=== PATIENT | female | born 1955 | race Caucasian/White ===

== ENCOUNTER → 2017-04-13 | Outpatient (CLI) | payer BC ==
--- NOTE | 2017-04-14 13:21 | MAMMOGRAPHY REPORT ---
BILATERAL DIGITAL SCREENING MAMMOGRAM TOMOSYNTHESIS WITH CAD: 04/13/2017 CLINICAL HISTORY: Asymptomatic. Personal history of breast cancer. TECHNIQUE: Breast tomosynthesis in addition to standard 2D mammography was performed. Current study was also evaluated with a Computer Aided Detection (CAD) system. COMPARISON: Comparison is made to exams dated: 04/12/2016 mammogram, 03/17/2015 mammogram, 03/13/2014 mamm ogram, 10/15/2012 mammogram, 11/19/2010 mammogram, and 10/08/2009 mammogram - [facility] BREAST COMPOSITION: The tissue of both breasts is heterogeneously dense, which may obscure small mas ses. FINDINGS: No suspicious masses, calcifications, or areas of architectural distortion are noted in ei ther breast. There has been no significant interval change compared to prior exams. There are stable postsurgical changes in the left breast from prior lumpectomy. IMPRESSION: ACR BI-RADS CATEGORY 2: BENIGN There is no mammographic evidence of malignancy. A 1 year screening mammogram is recommended. The pa tient will receive written notification of the results. Approximately 10% of breast cancers are not detected with mammography. A negative mammographic report should not delay biopsy if a clinically suggestive mass is present. Gill Yuen M.D. ah/:04/13/2017 15:43:16 Hairspring Cutter: Anita Plunkett M, [facility] letter sent: Normal 1/2 BI-RADS Code: ACR BI-RADS Category 2: Benign
== END | disposition home or self-care (01) ==
LOC: C.MAMM 09:49
PROVIDERS: ATTEND Family Medicine
DX: Z12.31 Encounter for screening mammogram for malignant neoplasm of breast (principal)

== ENCOUNTER → 2017-10-04 | Outpatient (CLI) | payer OTHER ==
[2017-10-04 16:52] LABS: BASO % 0.4 %; BASO ABS # 0.02 K/uL (0-0.2); EOS % 1.5 %; EOS ABS # 0.07 K/uL (0-0.5); HEMATOCRIT 37.6 % (37-47); HEMOGLOBIN 12.5 g/dL (12.0-16.0); LYMPH % 23.6 %; LYMPH ABS # 1.08 K/uL (1.2-3.4); MEAN CELL VOLUME 90.4 fL (80-100); MEAN CORPUSCULAR HGB CONC 33.2 g/dl (32-36); MEAN PLATELET VOLUME 9.9 fL (7.4-10.4); MONO % 8.1 %; MONO ABS # 0.37 K/uL (0.11-0.59); NEUT % 66.4 %; NEUT ABS # 3.04 K/uL (1.4-6.5); PLATELET COUNT 267 K/uL (130-400); RED CELL DISTRIBUTION WIDTH CV 13.9 % (11.5-14.5); RED CELL DISTRIBUTION WIDTH SD 45.9 fL (36.4-46.3); WHITE BLOOD COUNT 4.58 K/uL (4.8-10.8)
[2017-10-04 17:04] LABS: ALBUMIN 3.6 gm/dl (3.4-5.0); ALT/SGPT 29 U/L (12-78); BLOOD UREA NITROGEN 24 mg/dl (7-18); CALCIUM 9.2 mg/dl (8.5-10.1); CARBON DIOXIDE 28 mmol/L (21-32); GLUCOSE 95 mg/dl (70-99); POTASSIUM 4.5 mmol/L (3.5-5.1); SODIUM 138 mmol/L (136-145)
[2017-10-04 17:15] LABS: ALKALINE PHOSPHATASE 91 U/L (45-117); AST/SGOT 18 U/L (15-37); TOTAL PROTEIN 7.5 gm/dl (6.4-8.2)
== END | disposition home or self-care (01) ==
LOC: C.LABBC 12:59
PROVIDERS: ATTEND Family Medicine
DX: R53.83 Other fatigue (principal); R06.02 Shortness of breath

== ENCOUNTER → 2017-10-10 | Outpatient (CLI) | payer OTHER ==
--- NOTE | 2017-10-10 13:12 | EXERCISE STRESS TEST ---
PROCEDURE: A treadmill exercise stress test was performed using the Ryan protocol. Imaging was not performed. The patient exercised well, she achieved a peak heart rate of 155 beats per minute (which is nearly 100% of her predicted maximal heart rate), and she exercised for 9 minutes before the treadmill was stopped due to achieving a high heart rate. She did not have symptoms of chest discomfort, she did have some shortness of breath at higher exercise levels. Her blood pressure increased appropriately during the test. There were no ST-T abnormalities identified during the test. There were no arrhythmias identified. CONCLUSION: Normal treadmill stress test with a good exercise tolerance and high heart rate achieved.
== END | disposition home or self-care (01) ==
LOC: C.CPL 08:46
PROVIDERS: ATTEND Family Medicine
DX: R53.83 Other fatigue (principal); R06.02 Shortness of breath

== ENCOUNTER → 2017-12-26 | Outpatient (CLI) | payer OTHER ==
[2017-12-26 11:45] LABS: PLATELET COUNT 223 K/uL (130-400)
[2017-12-26 12:29] LABS: URIC ACID 2.5 mg/dl (2.6-7.2)
[2017-12-30 05:35] LABS: ANA SCREEN TC 249X NEGATIVE (NEGATIVE)
== END | disposition home or self-care (01) ==
LOC: C.LAB 11:00
PROVIDERS: ATTEND Orthopaedic Surgery
DX: I82.90 Acute embolism and thrombosis of unspecified vein (principal)

== ENCOUNTER → 2018-04-17 | Outpatient (CLI) | payer OTHER ==
--- NOTE | 2018-04-18 13:38 | MAMMOGRAPHY REPORT ---
BILATERAL DIGITAL SCREENING MAMMOGRAM TOMOSYNTHESIS WITH CAD: 04/17/2018 CLINICAL HISTORY: Routine screening. Patient has no complaints. TECHNIQUE: The study was acquired using full field digital technology and interpreted from soft copy. Breast tomosynthesis in addition to standard 2D mammography was performed. Current study was also ev aluated with a Computer Aided Detection (CAD) system. COMPARISON: Comparison is made to exams dated: 04/13/2017 mammogram, 04/12/2016 mammogram, 03/17/2015 mamm ogram, 03/13/2014 mammogram, 10/15/2012 mammogram, and 11/19/2010 mammogram - [facility] . BREAST COMPOSITION: The tissue of both breasts is heterogeneously dense, which may obscure small mass es. FINDINGS: A linear scar marker overlies the left upper outer quadrant. There is expected architectur al distortion and surgical clips in the upper outer posterior left breast and left axillary region, d enoting areas of prior surgery. Stable nodular asymmetry in the medial left breast on the CC view. N o suspicious mass, architectural distortion or cluster of microcalcifications is seen. IMPRESSION: ACR BI-RADS CATEGORY 1: NEGATIVE There is no mammographic evidence of malignancy. A 1 year screening mammogram is recommended.( [id number]) The patient will receive written notification of the results. Some breast cancers are not detected with mammography. A negative mammographic report should not julian y biopsy if a clinically suggestive mass is present. Virginie Maher M.D. ay/:04/17/2018 16:45:40 Brush Clearing Laborer: RT Christina(R)(M), [facility] letter sent: Normal 1/2 BI-RADS Code: ACR BI-RADS Category 1: Negative
== END | disposition home or self-care (01) ==
LOC: C.MAMM 09:37
PROVIDERS: ATTEND Family Medicine
DX: Z12.31 Encounter for screening mammogram for malignant neoplasm of breast (principal)